=== PATIENT | male | born 1950 | race Caucasian/White ===

== ENCOUNTER 2017-03-28 08:47 | Inpatient (IN) | payer MEDICARE, MEDICAID ==
[~2017-03-28] VITALS: Ht 177.8 cm; Wt 144.0 kg
--- NOTE | ~2017-03-28 | WND ---
ADMIT: 03/28/2017 RM/LOC: 633 [facility] MR#: [id number] [address] [address] ANNE RAMOS [address] [place] [address] Wound Care Clinic SEX: M AGE: 66 : 1950 DATE OF VISIT: 03/28/2017 TIME IN: 1450 hours. TIME OUT: 1500 hours. REASON FOR VISIT: Evaluation and treatment of right lower extremity venous insufficiency ulceration. Request for wound care from Dr. Nunez. This is an inpatient appointment. HISTORY OF PRESENT ILLNESS: This is a 66-year-old male, well known to the [facility]. He has been followed since 2010 for venous insufficiency ulcerations. He was most recently sent to the [facility] on 03/08/2017 after he was seen by Dr. Faria for right lower extremity drainage and discomfort. He does have lymphedema pumps at home; however, he was not using them initially because of an infection. He had been started on cephalexin. He presented to the [facility] twice weekly for evaluation and treatment of the ulceration to his right lower extremity. On his last visit, his ulcerations were almost healed. Current treatment to the area is Mepilex Ag with Kerlix and size small EdemaWear. He had a regularly scheduled outpatient clinic appointment today. He is actually at [facility] because his was scheduled for surgery. However, he began to experience increased abdominal pain. Therefore, he was sent to the emergency room where he had upright and supine views of his abdomen. The findings revealed nonspecific nonobstructive bowel gas pattern. The impression was small scattered air-fluid levels without bowel obstruction, possible mild ileus or enteritis. He has a past medical history of a bowel obstruction in 2013 secondary to adhesions and a foreign body within the bowel. He actually underwent an exploratory laparoscopy with lysis of significant amount of small bowel adhesions and omentum and a minilaparotomy with an enterotomy in the small bowel that removed a foreign body which appeared to be hard cartilaginous or vegetable-type material. This occurred on 07/15/2014. He had a previous appendectomy. He presented to the emergency room because of increased pain that developed this morning. He states he has felt some chills at home. He also has been nauseated, but no vomiting. He has been passing flatus. He was admitted to [facility] inpatient [facility] for further evaluation and care. His CBC on admission showed a WBC of 9.8, RBC 4.06, hemoglobin 11.5, hematocrit 34.6, mean cell volume 85.6, RDW elevated at 14.6. His chemistry panel showed a sodium of 140, potassium 4.6, chloride 106, carbon dioxide 26, BUN 55, glucose 167, creatinine of 2, calcium 9, total bilirubin 0.3, total protein in the blood 7.9, albumin 4, alkaline phosphate 105, AST 15, ALT 24, lipase 470. Urea creatinine ratio of 27.5, anion gap 15, GFR 33, and calcium corrected 9. PAST MEDICAL HISTORY: 1. Small-bowel obstruction and foreign body removal along with adhesions in fall. 2. Type 2 diabetes, on insulin. ADMIT: 03/28/2017 RM/LOC: 633 [facility] MR#: [id number] [address] [address] ANNE RAMOS [address] [place] [address] Wound Care Clinic SEX: M AGE: 66 : 1950 3. Hypertension. 4. Morbid obesity. 5. Cardiac abnormalities secondary to electrolyte disturbance. 6. Renal insufficiency secondary to dehydration. 7. Arthritis. 8. Hyperlipidemia. 9. History of DVT, right lower extremity. 10.History of previous ulcerations, bilateral lower extremities, venous insufficiency. 11.History of migraines that resolved in his teens. 12.Gout. 13.CPAP for sleep apnea. 14.Appendectomy. 15.Vein stripping in 1970s. 16.Colon polyps. 17.Urge incontinence of urine. ALLERGIES: No known food, latex, or medication allergies. CURRENT MEDICATIONS: Per the MAR. Please see the MAR for further details. 1. Xalatan. 2. Levemir. 3. Lovenox. 4. NovoLog. 5. Normal saline. P.R.N. medications: 1. Glutose. 2. Glucagon. 3. Tylenol suppository. 4. Nitrostat. 5. D50. 6. D5 NS. 7. Morphine. FAMILY HISTORY: Significant stroke in a maternal grandmother. Father's side with uncles with coronary thrombosis. Mother with breast cancer. Sister with breast cancer. Sister with varicose veins and venous insufficiency ulcerations. SOCIAL HISTORY: He is single; however, he has a life partner that he lives with. 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 Smoked from age 15 until he quit 25 years ago. He states he used to smoke 3-4 packs of cigarettes per day. He states he used to be an alcoholic, but his last drink was in the 1980s. He denies any street drug usage. He does drink decaffeinated products. His highest level of education is his GED and his welder assembler training. REVIEW OF SYSTEMS: He is examined in his hospital room where he appears ADMIT: 03/28/2017 RM/LOC: 633 [facility] MR#: [id number] [facility] [address] [address] ANNE RAMOS [address] [place] [address] Wound Care Clinic SEX: M AGE: 66 : 1950 uncomfortable. He is alert and oriented x3. He states he has had some chills, but denies any fever. He is nauseated, but denies any vomiting. He rates his abdominal pain up to a 10. He states he has passed some flatus. His abdomen is swollen he states. He denies any discomfort in his lower extremities. PHYSICAL EXAMINATION: VITAL SIGNS: Temperature 97.2, pulse 73, respirations 18, blood pressure 161/79, O2 sats on room air is 94%. Focused exam is to his right lower extremity with foot circumference of 24.5 cm, ankle 23 cm, and calf 20 cm, malleolus is 35 cm. Posterior tibialis and dorsalis pedis is 1+. On the anterior gustafson area is the area of scarring and hemosiderin staining from previous ulcerations. He now only has 3 small crust remaining that measures 0.3 cm x 0.3 cm, 0.2 cm x 0.2 cm, and 0.2 cm x 0.3 cm. Otherwise, he has new epithelium covering the area of the previous ulceration. His toes are warm to touch with quick capillary refill. ASSESSMENT: Healing venous insufficiency ulcerations, right lower extremity. TREATMENT PLAN: The old dressings were removed without difficulty. The right lower extremity was washed well with warm soapy water, rinsed, and patted dry. Mepilex Ag was placed over the crusts, held in place with Kerlix. A size small EdemaWear was applied from the toes to popliteal crease. He is to keep this in place until his followup appointment on 04/04/2017 at 1 o'clock. His outpatient appointment for 03/31/2017 is cancelled. At this point in time, we will just protect the area and follow up as an outpatient. However, I did talk to the nursing staff and indicated that if his dressing would become wet, it does need to be changed. Thank you for this continued referral. Grace Brandt APRN/ yusuf JOB #: [id number] CC: Kayden Olsen MD, Attending Physician Kayden Olsen MD, Family Physician
[~2017-03-28 08:47] MED LIST: COLACE-DPS100 MG PO; GEMFIBROZIL600 MG PO; GLUCOPHAGE-DPS500 MG PO; LASIX DPS20 MG PO; LEVEMIR100 UNIT/1 SQ; MAALOX DPS30 ML PO; MICRO-K DPS10 MEQ PO; MIRALAX PACKET17 GM PO; NEURONTIN DPS300 MG PO; NOVOLOG100 UNIT/2 SQ; PRILOSEC DPS20 MG PO; STARLIX120 MG PO; TYLENOL EXTRA500 M1 PO; VITAMIN E400 UNIT PO; ZESTRIL DPS20 MG PO
--- NOTE | 2017-04-03 07:48 | HP ---
ADMIT: 03/28/2017 RM/LOC: 633 [facility] MR#: [id number] ACC#: [id number] [address] [address] ANNE RAMOS [address] [place] [address] History and Physical SEX: M AGE: 66 : 1950 DATE OF SERVICE: CHIEF COMPLAINT: Belly pain. HISTORY OF PRESENT ILLNESS: This is a 66-year-old gentleman with a history of bowel obstruction and ileus and started to have abdominal pain last night and especially this morning. He was seen in the emergency room and had a KUB x- ray which was consistent with early ileus, but no evidence of obstruction. He is diabetic, says he cannot eat because of the pain. He has no vomiting. Last bowel movement was 03/26. Because of his history of obstructions as well as his complaint of pain and inability to eat and need to closely monitor intake with his diabetes, I elected to admit him to the hospital. PAST MEDICAL HISTORY: Significant for previous bowel obstruction in 2013. At that time, he had small bowel obstruction managed initially by bowel rest, but symptoms worsened, and he was taken to the operating room for laparotomy and had bezoar removed. He had a second ileus in 01/2016, that resolved with bowel rest. He has done well for the last year in that regard. The patient has diabetes type 2, on insulin. He has morbid obesity, chronic lower extremity peripheral neuropathy with venous stasis ulcers and diabetic ulcers. He has chronic kidney disease, stage III; hypertension; obstructive sleep apnea; glaucoma; gastroesophageal reflux; history of colon polyps; migraine headaches; and past history of gout. PAST SURGICAL HISTORY: Include appendectomy as a teenager and then exploratory laparotomy in 2013, and he has had a prior vasectomy. He has also had colonoscopy in 02/2017, just last month, which was unremarkable. MEDICATIONS: 1. Allopurinol 200 mg daily. 2. Bisoprolol/hydrochlorothiazide 5/6.25 take two daily. 3. Bumetanide 1 mg b.i.d. 4. Colace 100 mg b.i.d. 5. Glucosamine chondroitin b.i.d. 6. Lasix 20 mg daily. 7. Gemfibrozil 600 mg b.i.d. 8. Glucophage 500 mg b.i.d. 9. Lisinopril 20 mg daily. 10.Levemir 45 units subcu at bedtime. 11.Multivitamin daily. 12.Nasacort 2 squirts in each nostril daily. 13.Nateglinide 120 mg t.i.d. after meals. 14.Neurontin 300 mg t.i.d. 15.Omeprazole 20 mg daily. 16.Potassium 10 mEq daily. 17.Singulair 10 mg at bedtime. 18.Travatan eye drops one drop in each eye at bedtime. 19.Vitamin E capsule daily. ADMIT: 03/28/2017 RM/LOC: 633 [facility] MR#: [id number] [address] [address] ANNE RAMOS [address] [place] [address] History and Physical SEX: M AGE: 66 : 1950 20.He also has p.r.n. NovoLog sliding scale. ALLERGIES: NONE KNOWN. FAMILY HISTORY: Significant for coronary artery disease, diabetes, stroke, alcoholism, kidney disease, and hypertension. His mother and father both . Mother had breast cancer. His sister also of breast cancer. SOCIAL HISTORY: He has a significant other. She actually had her gallbladder out today and so is currently in the recovery room. He is a previous smoker, quit many years ago. Denies drug and alcohol use. He is on disability. He ambulates either with electric scooter or uses a cane. REVIEW OF SYSTEMS: GENERAL: He said he felt well until yesterday. He ate lunch and said that included a salad that had raw carrots, then he started to have stomach pain afterwards. Otherwise, he has been doing well. Appetite is good. He has had no fevers. ENT: Benign. Denies any trouble swallowing. CARDIOPULMONARY: Denies chest pain. Denies trouble with breathing. He does wears CPAP at night for sleep apnea. GASTROINTESTINAL: Positive for recurrent belching and stomach pain which is diffuse throughout belly and "comes in waves." He says he does not think he has been able to pass gas all day. Last bowel movement was 48 hours ago, he thinks. He denies any bloody stools or dark stools. No diarrhea. SKIN AND INTEGUMENT: Positive for a venous stasis ulcer on the right leg that has been followed by Wound Care. He was supposed to go see them this afternoon as well. He has chronic venous stasis edema and peripheral neuropathy. NEUROPSYCHIATRIC: He denies complaints other than being concerned about his significant other being able to get home and care for herself. ENDOCRINE: Positive for diabetes. LABORATORY AND X-RAY DATA: His creatinine is 2 and the usual baseline is anywhere from 1.4 to 1.9 in our clinic, and at the hospital, most recent numbers were in the last year, around 1.4. Otherwise, electrolytes look normal. His white count is only slightly elevated. X-ray shows findings consistent with ileus, but no obstruction. ASSESSMENT: 1. Abdominal pain with probable early small-bowel ileus. 2. History of bowel obstruction requiring surgery. 3. Diabetes type 2, insulin dependent. ADMIT: 03/28/2017 RM/LOC: 633 [facility] MR#: [id number] [address] [address] ANNE RAMOS [address] [place] [address] History and Physical SEX: M AGE: 66 : 1950 4. Chronic hypertension. 5. Chronic kidney disease with acute kidney failure. We are going to give some IV fluids and follow his numbers. 6. Obstructive sleep apnea and he will continue on his CPAP. We will use sliding scale insulin here and cut his Levemir dose down while he is n.p.o. today. We will manage his symptoms conservatively for now. If he has worsening symptoms or develops any signs of obstruction, then I will ask for Surgery to see him. Dr. Quintanilla is very familiar with this gentleman. He requests something for pain, so I will continue morphine which he had in the ER and helped considerably. We will also encourage him to get up and around as much as he is able to tolerate. Jayleen Nunez MD/ yusuf JOB #: [id number] CC: Kayden Olsen MD, Attending Physician Kayden Olsen MD, Family Physician
[2017-04-03] MEDS ORDERED: BUMEX DPS1 MG PO (11:09)
[2017-04-03] MEDS ORDERED: ZIAC 5-6.25 MG1 EACH PO (11:09)
[2017-04-03] MEDS ORDERED: ALLOPURINOL100 MG PO (11:09)
[2017-04-03] MEDS ORDERED: MONTELUKAST SOD10 MG PO (11:09)
[2017-04-03] MEDS ORDERED: TRAVATAN2.5 ML OU (11:10)
[2017-04-03] MEDS ORDERED: COD LIVER OIL1 EACH PO (11:12)
[2017-04-03] MEDS ORDERED: GLUCOSAMINE &1 EAC1 PO (11:12)
[2017-04-03] MEDS ORDERED: VITAMIN E400 UNIT PO (11:13)
[2017-04-03] MEDS ORDERED: DAILY MULTIPLE1 EAC1 PO (11:13)
--- NOTE | 2017-04-05 09:22 | ER ---
ADMIT: 03/28/2017 RM/LOC: 633 [facility] MR#: [id number] ACC#: [id number] [address] [address] ANNE RAMOS [address] [place] [address] Emergency Room Report SEX: M AGE: 66 : 1950 DATE: 03/28/2017 the patient is a 66-year-old who was seen by the PA student Christi Nowak. He came in with abdominal pain, concerned about an obstruction since he has had 3 of them and one of them required surgery. He had some nausea. Last bowel movement 03/26/2017. REVIEW OF SYSTEMS: Otherwise negative. PAST MEDICAL HISTORY: Diabetes type 2, hypertension, COPD, hyperlipidemia, intestinal obstruction, and chronic kidney disease. PAST SURGICAL HISTORY: He had an appendectomy and colonoscopy. MEDICATIONS: See T-sheet. ALLERGIES: SEE T-SHEET. PHYSICAL EXAMINATION: VITAL SIGNS: Blood pressure 159/74, heart rate 75, respirations 18, temp is 98.1, and O2 sats 98%. GENERAL: Obese. Moderately anxious. GI: Physical examination within normal limits except for the hypoactive bowel sounds and right upper and lower quadrant tenderness. LABORATORY DATA: CBC within normal limits. Hemoglobin 11.5, hematocrit is 34.6. BUN 55, glucose 167 with a creatinine of 2.0. Lipase 470. No CT done. KUB does show ileus versus early gastroenteritis or enteritis. CLINICAL IMPRESSION: Ileus. Abdominal pain. Dr. Nunez contacted. The patient will be admitted for IV fluids, and will be n.p.o. and monitor. Orders given. The patient awaiting room placement. He has been given already Zofran, morphine, and an IV saline lock and awaiting room placement. LEA Ochoa / Tian Tsang MD / yusuf JOB #: [id number] CC: Kayden Olsen MD, Attending Physician Kayden Olsen MD, Family Physician
--- NOTE | 2017-05-10 13:37 | DS ---
ADMIT: 03/28/2017 RM/LOC: 633 [facility] MR#: [id number] [address] [address] ANNE EVANS [address] [place] [address] General Discharge Summary SEX: M AGE: 66 : 1950 ADMISSION DATE: 03/28/2017 DISCHARGE DATE: 04/02/2017 ADMITTING DIAGNOSIS: As per history and physical. FINAL DIAGNOSES: 1. Partial small bowel obstruction, medical management. 2. Acute pancreatitis. 3. Mhxwc-oq-vwnuunt kidney disease. 4. Acute renal insufficiency due to dehydration. 5. Type 2 diabetes with diabetic chronic kidney disease. 6. Diabetic neuropathy. 7. Chronic kidney disease, stage 3. 8. Diabetic nephropathy. 9. Morbid obesity. 10.Chronic obstructive pulmonary disease. 11.Hyperlipidemia. 12.Obstructive sleep apnea. 13.Chronic gastroesophageal reflux disease. 14.Gout. 15.Tobacco use disorder, in full sustained remission. 16.Past history of prior partial small bowel obstruction, status post previous exploratory laparotomy. COMPLICATIONS: None. OPERATIONS: None. CLINICAL HISTORY: Mr. Evans is a 66-year-old, morbidly obese male, with history of prior small bowel obstruction. The patient had the onset of abdominal pain the evening prior to admission. He had been vomiting intermittently at home and having increasing pain. He presented to the emergency room on the morning of 03/28/2017, complaining of mid-abdominal pain with protracted nausea. He was evaluated in the ER and was felt to have a recurrent partial small bowel obstruction and admitted for IV fluid rehydration. He was also noted on admission to have mqnck-iw-qkkwpsb renal failure. For further details of the clinical history as well as past medical history and pertinent findings on physical exam, please see dictated history and physical. LABORATORY AND X-RAY SUMMARY FROM THIS ADMISSION: For complete details of lab, please see cumulative laboratory summary included in the chart. His initial CBC showed a white count of 9800, hemoglobin was 11.5, hematocrit 34.6. On his 2nd hospital day following rehydration, hemoglobin dropped to 10.5, hematocrit 32.5. CBCs were monitored daily with no other major change other than for worsening of his anemia. At discharge, his white count was 6700, hemoglobin 8.7, hematocrit 27.3, platelets were normal at 223,000. Chemistry studies were monitored daily because of his ganod-cw-hqfwbjq renal insufficiency. On admission; his sodium was 140, potassium 4.6, his BUN was ADMIT: 03/28/2017 RM/LOC: 633 [facility] MR#: [id number] [address] [address] RICHARDANNE GOLD [address] [place] [address] General Discharge Summary SEX: M AGE: 66 : 1950 55, with a creatinine of 2.0. On the morning of his 2nd hospital day, creatinine had risen to 2.5, with a BUN of 62. His BUN on the 3rd hospital day was down to 38, with a creatinine of 1.5. Renal function continued to improve and at discharge, his sodium was 143, potassium was 3.7, BUN was 13, with a creatinine of 1.2 at discharge. Fingerstick blood sugars were monitored q.i.d. during the hospital stay because of his insulin-dependent diabetes. Blood sugars ranged from a low of 88 to a high of 237 during this hospital stay, but for the most part, his blood sugars were well controlled. CT of his abdomen done in the ER showed changes consistent with a mid-to- distal small bowel obstruction with dilated loops of small bowel, no other significant intra-abdominal pathology noted on that initial CT scan. The pancreas appeared normal. Despite his abnormal pancreatic enzymes suggesting pancreatitis, no significant pancreatitis noted on an initial CT. KUB of his abdomen done on 03/28/2017, showed some scattered air-fluid levels without evidence of significant obstruction, resolving ileus or resolving partial small bowel obstruction. On 03/29/2017, x-ray showed increased gas and increased dilated loops of bowel consistent with persistent small bowel obstruction. On 03/30/2017, his KUB of the abdomen showed improvement in the appearance of his small bowel obstruction. Subsequent KUBs of the abdomen showed resolution of his small bowel obstruction and return to a normal bowel gas appearance. HOSPITAL COURSE: The patient was admitted, placed n.p.o. and started on IV fluids for hydration. He was given IV morphine for his pain, IV Zofran for the nausea. Because of his insulin-dependent diabetes, he was placed on sliding scale insulin. In addition to the small bowel obstruction, it was noted that his pancreatic enzymes were abnormal with elevated lipase consistent with pancreatitis. By his 2nd hospital day, he was starting to feel a little better with decrease in his pain, nausea had improved, he had started to pass some gas, but had no bowel movements. By his 3rd hospital day, he was starting to have liquid stools as well as passing gas, abdominal pain continued to improve, he was started initially on a clear liquid diet and slowly his diet was advanced, he tolerated this well. Ultimately, he had continued improvement and was dismissed to home on his 6th hospital day, 04/02/2017. DISCHARGE MEDICATIONS: Dismissed to home on the following medications; 1. Micro-K 10 mEq daily. 2. Singulair 10 mg daily. 3. Zestril 20 mg daily. 4. Ziac 5 mg one b.i.d. 5. Zyloprim 200 mg daily. 6. Travatan ophthalmic drops 1 drop OU both eyes at bedtime. 7. Gemfibrozil 600 mg b.i.d. 8. Gabapentin 300 mg t.i.d. 9. Metformin 500 mg b.i.d. 10.Lisinopril 20 mg daily. 11.Omeprazole 20 mg daily. ADMIT: 03/28/2017 RM/LOC: 633 [facility] MR#: [id number] 26[address] [facility] [address] [place] [address] ANNE EVANS [address] [place] [address] General Discharge Summary SEX: M AGE: 66 : 1950 12.Nateglinide 120 mg t.i.d. with meals. 13.Docusate sodium 100 mg b.i.d. 14.Bumex 1 mg b.i.d. 15.Levemir 45 units at bedtime. 16.Tylenol 500 mg two b.i.d. p.r.n. arthritic pain. 17.Vitamin E 400 units daily. 18.Multivitamin 1 daily. 19.Ygba-fuc-kpjijft glucosamine chondroitin twice daily. 20.MiraLax 17 g in 8 ounces of water once daily. 21.Cod liver oil 1000 mg b.i.d. CONDITION AT DISCHARGE: Stable and improved. DISCHARGE INSTRUCTIONS: He was to stay on a light diet, eating small meals 4 to 5 times a day, avoid large meals, avoid large bulky meals or salads for the present time. If he has recurrent abdominal pain or signs or symptoms of recurrent small bowel obstruction, he is to notify us immediately. Otherwise, he is to follow up with myself in 5 to 7 days. Condition at discharge as noted improved. LONG-TERM PROGNOSIS: Poor in view of his morbid obesity and multiple comorbid medical conditions. Kayden Olsen MD/ yusuf JOB #: [id number] CC: Kayden Olsen MD, Attending Physician Kayden Olsen MD, Family Physician
== END 2017-04-02 10:25 | disposition home or self-care (01) | DRG 388 ==
LOC: ER 08:47 → 6PED 11:40
PROVIDERS: ADMIT Family Medicine
DX: K56.60 Unspecified intestinal obstruction (principal); K85.90 Acute pancreatitis without necrosis or infection, unspecified; N17.9 Acute kidney failure, unspecified; E11.22 Type 2 diabetes mellitus with diabetic chronic kidney disease; E11.42 Type 2 diabetes mellitus with diabetic polyneuropathy; N18.3 Chronic kidney disease, stage 3 (moderate); L97.919 Non-pressure chronic ulcer of unspecified part of right lower leg with unspecified severity; Z68.42 Body mass index [BMI] 45.0-49.9, adult; J44.9 Chronic obstructive pulmonary disease, unspecified; E66.01 Morbid (severe) obesity due to excess calories; E78.5 Hyperlipidemia, unspecified; I12.9 Hypertensive chronic kidney disease with stage 1 through stage 4 chronic kidney disease, or unspecified chronic kidney disease; E11.622 Type 2 diabetes mellitus with other skin ulcer; G47.33 Obstructive sleep apnea (adult) (pediatric); H40.9 Unspecified glaucoma; K21.9 Gastro-esophageal reflux disease without esophagitis; Z86.010 Personal history of colon polyps; M10.9 Gout, unspecified; Z79.4 Long term (current) use of insulin; Z82.49 Family history of ischemic heart disease and other diseases of the circulatory system; Z87.891 Personal history of nicotine dependence